=== PATIENT | male | born 1975 | race Caucasian/White ===

== ENCOUNTER 2018-02-08 23:53 | Emergency (ER) | payer OTHER ==
[2018-02-09 06:21] LABS: ADD MAN DIFF? NO
[2018-02-09 06:23] LABS: BASOPHILS % 0.7 % (0.0-2.0); EOSINOPHILS % 1.5 % (0.0-7.0); HEMOGLOBIN 13.6 g/dl (14.0-18.0); LYMPHOCYTES # 0.9 10^3/ul (0.8-2.9); LYMPHOCYTES % 32.4 % (15.0-51.0); MEAN CORPUSCULAR HGB CONC 35.8 g/dl (32.0-37.0); MEAN CORPUSCULAR VOLUME 83.9 fl (82.0-101.0); MEAN PLATELET VOLUME 8.7 fl (7.4-10.4); MONOCYTE # 0.3 10^3/ul (0.3-0.9); MONOCYTES % 10.5 % (0.0-11.0); NEUTROPHIL # 1.5 10^3/ul (1.6-7.5); NEUTROPHILS % 54.5 % (39.0-77.0); PLATELET COUNT 105 10^3/UL (140-415); RED BLOOD COUNT 4.53 10^6/ul (4.70-6.10); RED CELL DISTRIBUTION WIDTH 13.2 % (11.5-14.5)
[2018-02-09 06:23] LABS: WHITE BLOOD COUNT 2.8 10^3/ul (4.8-10.8)
[2018-02-09] MEDS: ONDANSETRON 4 MG INJ IV ×2 (06:37→06:38)
[2018-02-09] MEDS: SOD CHLORIDE 0.9% 1,000 ML IV ×2 (06:37→06:38)
[2018-02-09] MEDS: KETOROLAC 15 MG INJ IV (06:38)
[2018-02-09] MEDS: LORAZEPAM 2 MG INJ IV (06:38)
[2018-02-09] MEDS: FAMOTIDINE 20 MG TAB PO (07:18)
[2018-02-09] MEDS: LIDOCAINE/MYLANTA 40 ML BTL PO (07:18)
[2018-02-09] MEDS: BELLADONNA/PHENOBARBITAL TAB PO (07:18)
[2018-02-09 08:01] LABS: ALANINE AMINOTRANSFERASE 96 IU/L (13-69); ALBUMIN 3.9 g/dl (3.3-4.9); ALKALINE PHOSPHATASE 81 IU/L (42-121); ANION GAP 16 (8-16); ASPARTATE AMINO TRANSFERASE 121 IU/L (15-46); BILIRUBIN,INDIRECT 0.7 mg/dl (0-1.1); BILIRUBIN,TOTAL 0.7 mg/dl (0.2-1.3); BLOOD UREA NITROGEN 4 mg/dl (7-20); CARBON DIOXIDE 24 mmol/L (21-31); CHLORIDE 103 mmol/L (97-110); GLUCOSE 108 mg/dl (70-220); LIPASE 360 U/L (23-300); POTASSIUM 3.4 mmol/L (3.5-5.1); SODIUM 140 mmol/L (135-144); TOTAL PROTEIN 6.5 g/dl (6.1-8.1)
[2018-02-09 08:12] LABS: TROPONIN-I < 0.010 ng/ml (0.000-0.120)
== END 2018-02-09 10:49 | disposition home or self-care (01) ==
LOC: E/R 23:53
DX: F10.920 Alcohol use, unspecified with intoxication, uncomplicated (principal); R40.2142 Coma scale, eyes open, spontaneous, at arrival to emergency department; R40.2242 Coma scale, best verbal response, confused conversation, at arrival to emergency department; R40.2362 Coma scale, best motor response, obeys commands, at arrival to emergency department; R07.9 Chest pain, unspecified
CPT/HCPCS: 36415; 71045; 80053; 83690; 84484; 85025; 93005; 96374; 96375; 99285-25